=== PATIENT | male | born 1985 ===

== ENCOUNTER 2022-05-06 06:50 | Day surgery (SDC) | payer OTHER ==
[~2022-05-06] VITALS: Ht 180.3 cm; Wt 95.3 kg
[~2022-05-06 06:50] MED LIST: CARAFATE1 GM/10 ML; COLACE100 MG PO; NEURONTIN300 MG PO; PROTONIX40 M1; ULTRACET PO
[2022-05-06] MEDS ORDERED: NEURONTIN300 MG PO (13:08)
[2022-05-06] MEDS ORDERED: TRAM1TAB98 PO (13:08)
[2022-05-06] MEDS ORDERED: COLACE100 MG PO (13:08)
[2022-05-06] MEDS ORDERED: METRONIDAZOLE500 MG PO (13:08)
== END 2022-05-06 19:00 | disposition home or self-care (01) ==
LOC: CIR.AMB 06:50
PROVIDERS: ATTEND Surgery
DX: K60.3 Anal fistula (principal); K62.89 Other specified diseases of anus and rectum; K62.5 Hemorrhage of anus and rectum; F17.210 Nicotine dependence, cigarettes, uncomplicated; Z20.822 Contact with and (suspected) exposure to COVID-19